=== PATIENT | male | born 1960 | race Caucasian/White ===

== ENCOUNTER 2018-01-08 06:42 | Day surgery (SDC) | payer OTHER ==
[~2018-01-08] VITALS: Ht 177.8 cm; Wt 83.9 kg
[2018-01-08] MEDS ORDERED: SERTRALINE HCL50 MG PO (07:01)
[2018-01-08] MEDS ORDERED: GLIPIZIDE10 MG PO (07:01)
[2018-01-08] MEDS ORDERED: MELOXICAM7.5 MG PO (07:02)
[2018-01-08] MEDS ORDERED: NOVOLIN N100 UNIT/2 (07:02)
[2018-01-08] MEDS ORDERED: PERCOCET1 TA4 PO (12:12)
[2018-01-08 13:10] VITALS: BP 130/70
== END 2018-01-08 13:05 | DRG 502 ==
LOC: ORM 06:42
PROVIDERS: ATTEND Orthopaedic Surgery
PROC: 0LQ14ZZ Repair Right Shoulder Tendon, Percutaneous Endoscopic Approach (ICD-10-PCS; principal; 2018-01-08)
PROC: 0LS34ZZ Reposition Right Upper Arm Tendon, Percutaneous Endoscopic Approach (ICD-10-PCS; 2018-01-08)
PROC: 0RHJ44Z Insertion of Internal Fixation Device into Right Shoulder Joint, Percutaneous Endoscopic Approach (ICD-10-PCS; 2018-01-08)
PROC: 0RNJ4ZZ Release Right Shoulder Joint, Percutaneous Endoscopic Approach (ICD-10-PCS; 2018-01-08)
PROC: 0LN14ZZ Release Right Shoulder Tendon, Percutaneous Endoscopic Approach (ICD-10-PCS; 2018-01-08)
PROC: 3E0T3BZ Introduction of Anesthetic Agent into Peripheral Nerves and Plexi, Percutaneous Approach (ICD-10-PCS; 2018-01-08)
DX: S46.011A Strain of muscle(s) and tendon(s) of the rotator cuff of right shoulder, initial encounter (principal); S43.431A Superior glenoid labrum lesion of right shoulder, initial encounter; M75.51 Bursitis of right shoulder; M65.811 Other synovitis and tenosynovitis, right shoulder; I10 Essential (primary) hypertension; E11.9 Type 2 diabetes mellitus without complications; W19.XXXA Unspecified fall, initial encounter; Y92.149 Unspecified place in prison as the place of occurrence of the external cause; Z79.4 Long term (current) use of insulin
CPT/HCPCS: J2710

== ENCOUNTER → 2018-01-10 | Outpatient (REF) | payer OTHER ==
[~2018-01-10] MED LIST: GLIPIZIDE10 MG PO; MELOXICAM7.5 MG PO; NOVOLIN N100 UNIT/2; PERCOCET1 TA4 PO; SERTRALINE HCL50 MG PO
[2018-01-10 13:05] LABS: HEMATOCRIT 38.8 % (39.0-50.0); IMMATURE GRANULOCYTES 0.4 % (0.0-5.0); MEAN CORPUSCULAR HGB 31.2 pG CALC (26.0-32.0); MEAN CORPUSCULAR HGB CONC 33.5 g/L CALC (32.0-36.0); NEUT# 7.75 thou/uL (1.82-7.42); RED BLOOD COUNT 4.17 mill/uL (4.70-6.10); RED CELL DISTRI WIDTH 13.1 % (11.5-15.5)
[2018-01-10 13:12] LABS: URINE BILIRUBIN - DIPSTICK NEGATIVE (NEGATIVE); URINE BLOOD DIPSTICK MODERATE (NEGATIVE); URINE CLARITY CLEAR; URINE COLOR YELLOW; URINE GLUCOSE - DIPSTICK 250 mg/dL (NEGATIVE); URINE KETONE NEGATIVE (NEGATIVE); URINE LEUK ESTERASE NEGATIVE (NEGATIVE); URINE NITRITE - DIPSTICK NEGATIVE (Negative); URINE PH 5.5 (4.5-8.0); URINE PROTEIN - DIPSTICK NEGATIVE (NEG-TRACE); URINE SPECIFIC GRAVITY 1.015; URINE UROBILINOGEN - DIPSTICK 0.2 E.U./dL (0.2)
[2018-01-10 13:30] LABS: URINE WBC 0-2 WBC/hpf (0-5)
== END | disposition home or self-care (01) | DRG 728 ==
LOC: LABSPEC 12:53
PROVIDERS: ATTEND Internal Medicine
DX: N41.0 Acute prostatitis (principal); Z12.5 Encounter for screening for malignant neoplasm of prostate